=== PATIENT | female | born 1955 | race Caucasian/White ===

== ENCOUNTER → 2021-02-09 | Outpatient (CLI) | payer MEDICARE ==
[~2021-02-09] MED LIST: ASPIRIN EC81 MG PO; ATORVASTATIN CA40 MG PO; CLOPIDOGREL75 MG PO; IPRAT-ALBUT 0.5-3 ML INH; LOPRESSOR 25 MG25 MG PO; NITROGLYCERIN0.4 MG SL; PROAIR HFA8.5 GM INH; SYMBICORT 80-10.2 GM INH; SYNTHROID75 MCG PO
== END ==
LOC: HEART CORB 10:50
DX: I73.9 Peripheral vascular disease, unspecified (principal)

== ENCOUNTER → 2021-11-19 | Outpatient (CLI) | payer MEDICARE | LOC: US 13:22 | DX: I70.203 Unspecified atherosclerosis of native arteries of extremities, bilateral legs (principal) | CPT/HCPCS: 93925 ==